=== PATIENT | male | born 1990 | race American Indian/Alaskan Native ===

== ENCOUNTER 2017-05-01 13:05 | Emergency (ER) | payer MEDICAID, OTHER ==
[2017-05-01 14:24] VITALS: BMI 24.3
[2017-05-01 14:27] VITALS: RESP 18; TEMP 98
--- NOTE | 2017-05-01 15:54 | RAD ---
PROCEDURE: Left Knee Radiographs. HISTORY: Pain. COMPARISON: None. FINDINGS: BONES: No evidence of acute displaced fracture nor dislocation. The osseous structures appear intact. JOINTS: Joint spaces preserved with no significant osteoarthritis. JOINT EFFUSION: Small suprapatellar joint effusion. OTHER FINDINGS: None. IMPRESSION: No acute fractures. Small suprapatellar joint effusion.
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
[2017-05-01 17:01] VITALS: BP 121/72; PULSE 76; O2SAT 99
== END 2017-05-01 17:07 | disposition home or self-care (01) ==
LOC: ED 13:05
DX: M25.562 Pain in left knee (principal)

== ENCOUNTER 2017-06-04 23:25 | Emergency (ER) | payer MEDICAID, OTHER ==
[2017-06-04 23:26] VITALS: BMI 24.3
[2017-06-04 23:35] VITALS: BP 120/78; PULSE 76; RESP 20; TEMP 99.6; O2SAT 99
--- NOTE | 2017-06-04 23:55 | ED PDOC ---
Arrival/HPI - General Chief Complaint: Cough, Cold, Congestion Time Seen by Provider: 06/04/17 23:51 Historian: Patient - History of Present Illness Narrative History of Present Illness (Text): 06/04/17 23:55 Ariel Pettit is a 27 year old male, whose past medical history includes asthma, who presents to the Emergency department complaining of shortness of breath tonight. Patient reports associated chills and cough. Patient states symptoms are consistent with previous episodes of asthma. Patient also complaining of lower back pain. Patient denies any fever, chest pain, nausea, vomiting, diarrhea, urinary symptoms, neck pain, headache, dizziness, or any other complaints. Symptom Onset: Gradual Symptom Course: Unchanged Severity Level: Mild Activities at Onset: Rest, Light Context: Home Past Medical History - Provider Review Nursing Documentation Reviewed: Yes - Past History Past History: No Previous - Infectious Disease Hx of Infectious Diseases: None - Tetanus Immunization Tetanus Immunization: Up to Date - Cardiac Hx Cardiac Disorders: No - Pulmonary Hx Respiratory Disorders: Yes Hx Asthma: Yes - Neurological Hx Neurological Disorder: No - HEENT Hx HEENT Disorder: No - Renal Hx Renal Disorder: No - Endocrine/Metabolic Hx Endocrine Disorders: No - Hematological/Oncological Hx Blood Disorders: No - Integumentary Hx Dermatological Disorder: No - Musculoskeletal/Rheumatological Hx Musculoskeletal Disorders: No - Gastrointestinal Hx Gastrointestinal Disorders: No - Genitourinary/Gynecological Hx Genitourinary Disorders: No - Psychiatric Hx Psychophysiologic Disorder: No Hx Depression: No Hx Emotional Abuse: No Hx Physical Abuse: No Hx Substance Use: No - Past Surgical History Past Surgical History: No Previous - Surgical History Hx Orthopedic Surgery: Yes (WRIST,) - Anesthesia Hx Anesthesia: Yes Hx Anesthesia Reactions: No Hx Malignant Hyperthermia: No - Suicidal Assessment Feels Threatened In Home Enviroment: No Family/Social History - Physician Review Nursing Documentation Reviewed: Yes Family/Social History: Unknown Family HX Smoking Status: Light Smoker < 10 Cigarettes Daily Hx Alcohol Use: No Hx Substance Use: No Hx Substance Use Treatment: No Allergies/Home Meds Allergies/Adverse Reactions: Allergies No Known Allergies Allergy (Verified 06/04/17 23:35) Review of Systems - Physician Review All systems were reviewed & negative as marked: Yes - Review of Systems Constitutional: Other (+chills). absent: Fevers Eyes: Normal ENT: Normal Respiratory: SOB, Cough Cardiovascular: Normal Gastrointestinal: Normal. absent: Abdominal Pain, Diarrhea, Nausea, Vomiting Genitourinary Male: Normal. absent: Dysuria, Frequency, Hematuria, Urinary Output Changes Musculoskeletal: Back Pain (+lower back pain). absent: Neck Pain Skin: Normal. absent: Rash Neurological: Normal. absent: Headache, Dizziness Endocrine: Normal Hemo/Lymphatic: Normal Psychiatric: Normal Physical Exam Vital Signs Reviewed: Yes Vital Signs Temp Pulse Resp BP Pulse Ox 06/04/17 23:34 99.6 F 76 20 120/78 99 Temperature: Afebrile Blood Pressure: Normal Pulse: Regular Respiratory Rate: Normal Appearance: Positive for: Well-Appearing, Non-Toxic, Comfortable Pain Distress: None Mental Status: Positive for: Alert and Oriented X 3 - Systems Exam Head: Present: Atraumatic, Normocephalic Pupils: Present: PERRL Extroacular Muscles: Present: EOMI Conjunctiva: Present: Normal Mouth: Present: Moist Mucous Membranes Neck: Present: Normal Range of Motion Respiratory/Chest: Present: Clear to Auscultation, Good Air Exchange. No: Respiratory Distress, Accessory Muscle Use Cardiovascular: Present: Regular Rate and Rhythm, Normal S1, S2. No: Murmurs Abdomen: Present: Normal Bowel Sounds. No: Tenderness, Distention, Peritoneal Signs Back: Present: Normal Inspection Upper Extremity: Present: Normal Inspection. No: Cyanosis, Edema Lower Extremity: Present: Normal Inspection. No: Edema Neurological: Present: GCS=15, CN II-XII Intact, Speech Normal Skin: Present: Warm, Dry, Normal Color. No: Rashes Psychiatric: Present: Alert, Oriented x 3, Normal Insight, Normal Concentration Medical Decision Making ED Course and Treatment: 06/04/17 23:55 Impression: 27 year old male complaining of shortness of breath, cough, and chills. Also complaining of lower back pain. Differential Diagnosis included but are not limited to: asthma Plan: -- Duoneb -- Motrin -- Reassess and disposition Prior Visits: Notes and results from previous visits were reviewed. On 05/01/2017, pt was seen in the Emergency department for left knee pain and swelling. Pt was d/c home. Progress Notes: 06/05/17 01:48 On reevaluation the patient feels better and is in no acute distress. I have discussed the results and plan with the patient, who expresses understanding. Patient given the opportunity to ask question, all questions were answered and there is agreement with the plan to discharge the patient home. Patient is stable for discharge. Patient was instructed to follow up with physician/clinic in 1-2 days or return if symptoms persist/worsen or new concerning symptoms arise. - Medication Orders Current Medication Orders: Discontinued Medications Albuterol/Ipratropium (Duoneb 3 Mg/0.5 Mg (3 Ml) Ud) 3 ml IH STAT STA Stop: 06/05/17 00:01 Last Admin: 06/05/17 00:03 Dose: 3 ml Albuterol/Ipratropium (Duoneb 3 Mg/0.5 Mg (3 Ml) Ud) Confirm Administered Dose 9 ml .ROUTE .STK-MED ONE Stop: 06/05/17 00:03 Last Admin: 06/05/17 00:07 Dose: Ibuprofen (Motrin Tab) 400 mg PO ONCE STA Stop: 06/05/17 00:01 Last Admin: 06/05/17 00:04 Dose: 400 mg - Scribe Statement The provider has reviewed the documentation as recorded by the Raffi Price Provider Scribe Attestation: All medical record entries made by the Scribdaren were at my direction and personally dictated by me. I have reviewed the chart and agree that the record accurately reflects my personal performance of the history, physical exam, medical decision making, and the department course for this patient. I have also personally directed, reviewed, and agree with the discharge instructions and disposition. Disposition/Present on Arrival - Present on Arrival Any Indicators Present on Arrival: No History of DVT/PE: No History of Uncontrolled Diabetes: No Urinary Catheter: No History of Decub. Ulcer: No History Surgical Site Infection Following: None - Disposition Have Diagnosis and Disposition been Completed?: Yes Diagnosis: Asthma Disposition: HOME/ ROUTINE Disposition Time: 01:45 Condition: GOOD Discharge Instructions (ExitCare): Asthma (ED) Prescriptions: Naproxen [Naprosyn Tab] 375 mg PO BID #12 tab Albuterol HFA [Ventolin HFA] 1 puff IH QID #1 puff Forms: [employer] ([place]e)
[2017-06-05] MEDS ORDERED: Albuterol-Ipratrop 3 mg / 0.5 (3 ml) UD IH STA
[2017-06-05] MEDS ORDERED: Albuterol-Ipratrop 3 mg / 0.5 (3 ml) UD ONE (00:02)
== END 2017-06-05 01:47 | disposition home or self-care (01) ==
LOC: ED 23:25
DX: J45.909 Unspecified asthma, uncomplicated (principal)

== ENCOUNTER 2017-11-15 15:45 | Emergency (ER) | payer MEDICAID, OTHER ==
[2017-11-15 15:45] VITALS: BMI 24.3
== END 2017-11-15 17:12 | disposition left against medical advice (07) ==
LOC: ED 15:45
DX: Z02.89 Encounter for other administrative examinations (principal); Z48.02 Encounter for removal of sutures